=== PATIENT | male | born 1945 | race Caucasian/White ===

== ENCOUNTER 2018-11-27 15:09 | Emergency (ER) | payer OTHER, BC ==
[2018-11-27 15:23] VITALS: BP 161/82; PULSE 60; TEMP 98.4; BMI 29.0
--- NOTE | 2018-11-27 15:25 | PDOC ---
History of Present Illness - General Chief Complaint: CVA/TIA Stated Complaint: STROKE Time Seen by Provider: 11/27/18 15:24 - History of Present Illness Initial Comments: 11/27/18 15:38 72 y/o M hx of HTN and prostate cancer s/p prostatectomy presenting with 10 min of right sided lower face asymmetry and confusion. states that last night he was feeling a little ill after going out to eat followed by an episode of diarrhea this morning. About 10 min ago while driving, she noticed right lower face droop and he wasnt answering questions appropriately, repeating himself. He notes that at the time he was unable to remember the street he was on. On further history, he reports some right arm weakness last night that self resolved. Currently, he has no complaints, but is a little confused why he is here. He denies any pain, chest pain, SOB, n, v, fever, abd pain, headache, lighteheadedness, dizziness. PMHx: as noted above ROS: as noted SHx: Denies Etoh, IVDA, tobacco use Allergies: NKDA Past History - Past Medical History Allergies/Adverse Reactions: Allergies Allergy/AdvReac Type Severity Reaction Status Date / Time No Known Allergies Allergy Verified 11/27/18 15:13 Home Medications: Ambulatory Orders Amlodipine Besylate [Norvasc -] 5 mg PO DAILY 11/27/18 Escitalopram Oxalate [Lexapro -] 10 mg PO DAILY 11/27/18 Zolpidem Tartrate [Ambien] 5 mg PO HS 11/27/18 COPD: No - Suicide/Smoking/Psychosocial Hx Smoking History: Never smoked Have you smoked in the past 12 months: No Information on smoking cessation initiated: No Hx Alcohol Use: No Drug/Substance Use Hx: No Review of Systems - Review of Systems Comments:: 11/27/18 15:42 GENERAL/CONSTITUTIONAL: No fever or chills. No weakness. HEAD, EYES, EARS, NOSE AND THROAT: No change in vision. No ear pain or discharge. No sore throat. CARDIOVASCULAR: No chest pain or shortness of breath RESPIRATORY: No cough, wheezing, or hemoptysis. GASTROINTESTINAL: No nausea, vomiting, diarrhea or constipation. GENITOURINARY: No dysuria, frequency, or change in urination. MUSCULOSKELETAL: No joint or muscle swelling or pain. No neck or back pain. SKIN: No rash NEUROLOGIC: + facial droop and confusion; No headache, vertigo, loss of consciousness, or change in strength/sensation. ENDOCRINE: No increased thirst. No abnormal weight change HEMATOLOGIC/LYMPHATIC: No anemia, easy bleeding, or history of blood clots. ALLERGIC/IMMUNOLOGIC: No hives or skin allergy. *Physical Exam - Vital Signs Last Vital Signs Temp Pulse Resp BP Pulse Ox 98.4 F 60 20 161/82 100 11/27/18 15:11 11/27/18 15:11 11/27/18 15:11 11/27/18 15:11 11/27/18 15:11 - Physical Exam Comments: GENERAL: Awake, alert, and fully oriented, in no acute distress HEAD: No signs of trauma, normocephalic, atraumatic, mild lower right face droop EYES: PERRLA, EOMI, sclera anicteric, conjunctiva clear ENT: Auricles normal inspection, hearing grossly normal, nares patent, oropharynx clear without exudates. Moist mucosa NECK: Normal ROM, supple, no lymphadenopathy, JVD, or masses LUNGS: No distress, speaks full sentences, clear to auscultation bilaterally HEART: Regular rate and rhythm, normal S1 and S2, no murmurs, rubs or gallops, peripheral pulses normal and equal bilaterally. ABDOMEN: Soft, nontender, normoactive bowel sounds. No guarding, no rebound. No masses EXTREMITIES : Normal inspection, Normal range of motion, no edema. No clubbing or cyanosis. NEUROLOGICAL: see below SKIN: Warm, Dry, normal turgor, no rashes or lesions noted 11/27/18 17:10 NIHSS Level of consciousness: Alert Ask patient the month and their age: Answers both correctly Ask patient to open & close eyes; make fist and let go: Obeys both correctly Best gaze (horizontal eye movement): Normal Visual field testing: No visual field loss Facial paresis (Show teeth/raise eyebrows/close eyes tight): Minor paralysis ( flattened nasolabial fold, asymmetry on smiling) (Right sided lower face asymmetry when compared to the left) Motor Function: Left Arm: Normal Motor Function: Right Arm: Normal (extends arm 90 (or 45) degrees for 10 seconds without drift Motor Function: Left Leg: Normal (extends leg 30 degrees for 5 seconds without drift) Motor Function: Right Leg: Normal (extends leg 30 degrees for 5 seconds without drift) Limb Ataxia: Present in one limb Sensory(Use pinprick test arms,legs,trunk,face/side to side): Normal Best language (Describe picture, name items, read sentences): No Aphasia Dysarthria (read several words): Normal articulation Extinction and Inattention: No abnormality - Total Score NIH Stroke Scale Score: 2 ED Treatment Course - LABORATORY CBC & Chemistry Diagram: 11/27/18 15:57 11/27/18 15:57 Medical Decision Making - Medical Decision Making 11/27/18 17:12 72 y/o M hx of HTN and prostate cancer s/p prostatectomy presenting with 10 min of right sided lower face asymmetry and confusion. Exam notable for mild right lower face droop and mild left arm FTN ataxia. NIHSS 2. -stroke workup with CT head, as well as ekg, CXR, cbc, coags, cmp 11/27/18 17:14 CT head with no acute intracranial abnormalities labs unremarkable ekg: sinus bradycardia with absent CLAIRE, STD. Nml interval duration and axis. Nml R wave progression. Absent Q waves. cxr: no acute cardiopulmonary processes 11/27/18 17:16 patient deciding to leave [facility] to be assessed at [facility] *DC/Admit/Observation/Transfer Diagnosis at time of Disposition: TIA (transient ischemic attack) - Discharge Dispostion Disposition: AGAINST MEDICAL ADVICE Condition at time of disposition: Good - Referrals - Patient Instructions - Post Discharge Activity
--- NOTE | 2018-11-27 15:28 | PDOC ---
Attending Attestation - Resident Resident Name: Jagdeep,Karan - ED Attending Attestation I have performed the following: I have examined & evaluated the patient, The case was reviewed & discussed with the resident, I agree w/resident's findings & plan, Exceptions are as noted - HPI HPI: 11/27/18 17:11 Patient experienced transient right lower facial paralysis and confusion, slurred speech while driving in the car with his . Slight residual lower facial palsy persist but other symptoms have resolved. Duration of the pronounced facial palsy, confusion, and slurred speech was "a few minutes" according to the . Patient is now asymptomatic 11/27/18 17:12 Past medical history is significant for mild hypertension controlled on amlodipine and depression/anxiety/insomnia on Lexapro and Ambien. No other cardiac, vascular, or neuro disease known. - Physicial Exam PE: 11/27/18 17:13 Physical exam now reveals a mild right lower facial palsy, but there are no other focal deficits and gait is normal and unimpaired. Cerebellar function appears intact. Strength full and symmetric. Vital signs are stable. - Medical Decision Making 11/27/18 17:14 Assessment: TIA Plan: EKG, cardiac enzymes, CBC, chemistries, and CT of the head with no significant abnormalities. As noted, symptoms resolving. Admit for further evaluation, neurological consultation, and treatment. Admission was discussed with the patient and his . The danger of progression to a more severe stroke with paralysis, severe disability, or was carefully presented. Some of the potential causes such as carotid artery disease, cardiac disease, and hypercoagulable states were reviewed, as well as the urgent diagnostic tests necessary to investigate such potential causes. However, the patient and his agreed that they did not want to be admitted for further diagnosis and treatment and were willing to sign out AMA and assume the risks that were outlined, despite my efforts and the efforts of the staff to convince them that it was in the best interest and ultimate safety to be hospitalized and continuously observed.
--- NOTE | 2018-11-27 15:35 | PDOC ---
NIH Stroke Scale - Last Known Well Date/Time & Onset Date Last Known Well: 11/27/18 Time Last Known Well: 15:14 - Initial Evaluation Level of consciousness: Alert Ask patient the month and their age: Answers both correctly Ask patient to open & close eyes; make fist and let go: Obeys both correctly Best gaze (horizontal eye movement): Normal Visual field testing: No visual field loss Facial paresis (Show teeth/raise eyebrows/close eyes tight): Minor paralysis ( flattened nasolabial fold, asymmetry on smiling) (Right sided lower face asymmetry when compared to the left) Motor Function: Left Arm: Normal Motor Function: Right Arm: Normal (extends arm 90 (or 45) degrees for 10 seconds without drift Motor Function: Left Leg: Normal (extends leg 30 degrees for 5 seconds without drift) Motor Function: Right Leg: Normal (extends leg 30 degrees for 5 seconds without drift) Limb Ataxia: Present in one limb Sensory(Use pinprick test arms,legs,trunk,face/side to side): Normal Best language (Describe picture, name items, read sentences): No Aphasia Dysarthria (read several words): Normal articulation Extinction and Inattention: No abnormality - Total Score NIH Stroke Scale Score: 2
[2018-11-27 16:15] LABS: BASO % 0.4 % (0-2.0); EOS % 1.9 % (0-4.5); HEMOGLOBIN 14.2 GM/dl (11.7-16.9); LYMPH % 15.6 % (8-40); MCH 29.8 pg (25.7-33.7); MCHC 33.9 g/dl (32.0-35.9); MEAN PLT VOLUME 8.8 fl (7.5-11.1); MONO % 6.8 % (3.8-10.2); NEUT % 75.3 % (42.8-82.8); PLATELET COUNT 229 K/MM3 (134-434); RBC 4.77 M/mm3 (4.00-5.60); RDW 12.8 % (11.9-15.9); WHITE BLOOD COUNT 8.1 K/mm3 (4.0-10.8)
[2018-11-27 16:23] LABS: INR 1.19 (0.82-1.09); PROTHROMBIN TIME (PATIENT) 13.3 SEC (10.2-13.0)
[2018-11-27 16:24] LABS: ALBUMIN 3.9 g/dl (3.4-5.0); BILIRUBIN,TOTAL 0.8 mg/dl (0.2-1); CALCIUM 8.7 mg/dl (8.5-10); CREATININE 0.7 mg/dl (0.55-1.3); POTASSIUM 3.9 mmol/L (3.5-5.1); TOT PROT 6.6 g/dl (6.4-8.2)
--- NOTE | 2018-11-28 08:53 | EKG ---
Test Reason : Blood Pressure : / mmHG Vent. Rate : 054 BPM Atrial Rate : 054 BPM P-R Int : 178 ms QRS Dur : 086 ms QT Int : 442 ms P-R-T Axes : 073 -01 003 degrees QTc Int : 419 ms POOR DATA QUALITY, INTERPRETATION MAY BE ADVERSELY AFFECTED SINUS BRADYCARDIA OTHERWISE NORMAL ECG NO PREVIOUS ECGS AVAILABLE Confirmed by NHAN ERNANDEZ, RESHMA ([id number]) on 11/28/2018 8:53:38 AM Referred By: Confirmed By:RESHMA JUSTIN MD
== END 2018-11-27 17:23 | disposition left against medical advice (07) ==
LOC: FER 15:09
DX: G45.9 Transient cerebral ischemic attack, unspecified (principal); I10 Essential (primary) hypertension; Z85.46 Personal history of malignant neoplasm of prostate
CPT/HCPCS: 36415; 70450-TC; 71045-TC-FY; 80053; 82550; 84484; 85025; 85610; 93005; 99284-25

== ENCOUNTER 2022-02-12 08:02 | Day surgery (SDC) | payer OTHER, BC ==
[2022-02-11 13:34] VITALS: BMI 27.3
[2022-02-12 08:20] VITALS: RESP 18
[2022-02-12] MEDS: CIPROFLOXACIN 0.3% EYE DROPS 5 ML BOTTLE ONE ×3 (08:25→08:35)
[2022-02-12] MEDS: CYCLOPENTOLATE 2% OPHTH SOLN 2 ML BOTTLE ONE ×3 (08:25→08:36)
[2022-02-12] MEDS: TROPICAMIDE 1% OPHTH SOLN 15 ML BOTTLE ONE ×3 (08:25→08:35)
[2022-02-12] MEDS: PHENYLEPHRINE 2.5% OPHTH SOLN 15 ML BOTTLE ONE ×3 (08:25→08:35)
[2022-02-12] MEDS ORDERED: MIDAZOLAM HCL 2 MG/2 ML SINGLE DOSE VIAL ONE ×2 (09:51→10:01)
[2022-02-12] MEDS ORDERED: LIDOCAINE 1% P/F 10 MG/ML VIAL ONE (10:21)
[2022-02-12] MEDS ORDERED: EPINEPHrine/PF 1 MG/1 ML (1:1,000) AMPULE ONE (10:21)
[2022-02-12] MEDS ORDERED: NEO/POLYMYX B SULF/DEXAMETH OPHTHALMIC 5ML BOTTLE ONE (10:21)
[2022-02-12] MEDS ORDERED: BSS (NA/CA/MG/K) BALANCED SALT SOLUTION OPHTH SOLN 15 ML BOTTLE ONE (10:21)
[2022-02-12] MEDS ORDERED: CARBACHOL 0.01% INTRA-OCULAR 1.5 ML VIAL ONE (10:21)
[2022-02-12] MEDS ORDERED: TETRACAINE 0.5% OPHTH SOLN 2 ML BOTTLE ONE (10:21)
[2022-02-12 10:26] VITALS: TEMP 97.6
[2022-02-12 11:05] VITALS: BP 132/74; PULSE 70
== END 2022-02-12 11:05 | disposition home or self-care (01) ==
LOC: FASU 08:02
PROVIDERS: ATTEND Ophthalmology
PROC: 08RK3JZ Replacement of Left Lens with Synthetic Substitute, Percutaneous Approach (ICD-10-PCS; principal; 2022-02-12 10:01)
DX: H26.8 Other specified cataract (principal)
CPT/HCPCS: 66984; V2632

== ENCOUNTER 2022-02-26 06:35 | Day surgery (SDC) | payer OTHER, BC ==
[2022-02-21 10:58] VITALS: BMI 27.3
[2022-02-26] MEDS: PHENYLEPHRINE 2.5% OPHTH SOLN 15 ML BOTTLE ONE ×3 (07:00→07:10)
[2022-02-26] MEDS: TROPICAMIDE 1% OPHTH SOLN 15 ML BOTTLE ONE ×3 (07:00→07:10)
[2022-02-26] MEDS: CIPROFLOXACIN 0.3% EYE DROPS 5 ML BOTTLE ONE ×3 (07:00→07:10)
[2022-02-26] MEDS: CYCLOPENTOLATE 2% OPHTH SOLN 2 ML BOTTLE ONE ×3 (07:00→07:10)
[2022-02-26 07:04] VITALS: RESP 18
[2022-02-26] MEDS ORDERED: LIDOCAINE HCL/PF 1% SDV 5ML VIAL ONE (07:24)
[2022-02-26] MEDS ORDERED: EPINEPHrine/PF 1 MG/1 ML (1:1,000) AMPULE ONE (07:24)
[2022-02-26] MEDS ORDERED: PHENYLEPHRINE/KETOROLAC 4 ML VIAL IO ONE (07:24)
[2022-02-26] MEDS ORDERED: TRYPAN BLUE 0.5 ML DISP.SYRIN ONE (07:25)
[2022-02-26] MEDS ORDERED: TETRACAINE 0.5% OPHTH SOLN 2 ML BOTTLE ONE (07:25)
[2022-02-26] MEDS ORDERED: BSS (NA/CA/MG/K) BALANCED SALT SOLUTION OPHTH SOLN 15 ML BOTTLE ONE (07:25)
[2022-02-26] MEDS ORDERED: NEO/POLYMYX B SULF/DEXAMETH OPHTHALMIC 5ML BOTTLE ONE (07:26)
[2022-02-26] MEDS ORDERED: CARBACHOL 0.01% INTRA-OCULAR 1.5 ML VIAL ONE (07:26)
[2022-02-26] MEDS ORDERED: MIDAZOLAM HCL 2 MG/2 ML SINGLE DOSE VIAL ONE (07:59)
[2022-02-26 08:40] VITALS: TEMP 97.8
[2022-02-26 08:57] VITALS: BP 136/64; PULSE 64
== END 2022-02-26 09:40 | disposition home or self-care (01) ==
LOC: FASU 06:35
PROVIDERS: ATTEND Ophthalmology
PROC: 08RJ3JZ Replacement of Right Lens with Synthetic Substitute, Percutaneous Approach (ICD-10-PCS; principal; 2022-02-26 08:16)
DX: H26.8 Other specified cataract (principal)
CPT/HCPCS: 66984; V2632; J1097